=== PATIENT | male | born 1985 | race Caucasian/White ===

== ENCOUNTER 2022-06-14 10:05 | Emergency (ER) | payer BC ==
[2022-06-14 11:00] LABS: Hemoglobin 13.7 g/dL (13.5-17.5); Mean Corpuscular HGB CONC 34.3 g/dL (32.0-36.0); Mean Corpuscular Hemoglobin 30.2 pg (27.0-33.0); Mean Corpuscular Volume 87.9 fl (81.2-95.1); Mean Platelet Volume 9.3 fl (7.4-10.4); Platelet Count 219 10x3/uL (150-450); RBC Distribution Width 13.3 % (11.5-14.5); Red Blood Cell (RBC) Count 4.54 10x6/uL (4.32-5.72); White Blood Cell (WBC) Count 7.3 10x3/uL (3.5-10.5)
[2022-06-14 11:01] LABS: MDiff Complete? YES
[2022-06-14] MEDS ORDERED: Dexamethasone 10 MG/ML VIAL ONE (11:09)
[2022-06-14] MEDS ORDERED: Dexamethasone 4 mg/ml Vial ONE (11:09)
[2022-06-14 11:13] LABS: CRP (Inflammatory) 0.68 mg/dL (= or < 0.5); Magnesium 2.1 mg/dL (1.6-2.6)
[2022-06-14 11:14] LABS: Anion Gap 12 mmol/L (10-20); BUN (Urea Nitrogen) 17 mg/dL (8.9-20.6); Calc. Creatinine Clearance 0 mL/min (70-130); Carbon Dioxide 26 mmol/L (22-29); Chloride 104 mmol/L (98-107); Potassium 4.3 mmol/L (3.5-5.1); Sodium 138 mmol/L (136-145)
[2022-06-14 11:15] LABS: ALT (SGPT) 30 U/L (8-55); AST (SGOT) 22 U/L (5-34); Albumin 3.8 g/dL (3.5-5.0); Alkaline Phosphatase 58 U/L (40-110); Bilirubin, Total 0.3 mg/dL (0.2-1.2); Calcium 9.4 mg/dL (7.8-10.44); Estimated GFR 117; Globulin 2.8 g/dL (2.4-3.5); Glucose 126 mg/dL (70-105); Lipase 50 U/L (8-78); Protein, Total 6.6 g/dL (6.0-8.3)
[2022-06-14 11:21] LABS: Eosinophils 5 % (0-10); Lymphocytes 55 % (21-51); Monocytes 8 % (0-10); Neutrophil 31 % (42-75)
[2022-06-14 11:22] LABS: Platelet Morphology Comment Appears Adequate; RBC Morphology Normal
== END 2022-06-14 11:40 | disposition home or self-care (01) ==
LOC: CSHERS 10:05
DX: B34.9 Viral infection, unspecified (principal); F41.1 Generalized anxiety disorder; F17.210 Nicotine dependence, cigarettes, uncomplicated
CPT/HCPCS: 36415; 80053; 83690; 83735; 84443; 84484; 85025; 85379; 86140; 93005; J1100